=== PATIENT | female | born 1990 | race Caucasian/White ===

== ENCOUNTER → 2017-07-30 | Outpatient (CLI) | payer OTHER ==
[~2017-07-30] MED LIST: AUGMENTIN 875875 MG PO; CIPROFLOXACIN500 M1 PO; MINASTRIN 24 F1 EACH PO; PHENERGAN50 MG RC; PYRIDIUM200 MG PO; ZOFRAN4 MG PO; birth control
== END ==
LOC: M.LAB 11:49 → EDSTATUS 16:37
DX: N92.0 Excessive and frequent menstruation with regular cycle (principal)

== ENCOUNTER → 2017-08-13 | Outpatient (CLI) | payer OTHER | LOC: M.LAB 17:23 | DX: N92.0 Excessive and frequent menstruation with regular cycle (principal) ==

== ENCOUNTER 2019-07-29 08:54 | Emergency (ER) | payer OTHER ==
[~2019-07-29] VITALS: Ht 167.6 cm; Wt 56.2 kg
[2019-07-29] MEDS ORDERED: AMOXICILLI400 MG/5 M PO (09:09)
[2019-07-29 09:58] LABS: ABSOLUTE EOSINOPHILS 0.2 thou/uL (0.0-0.7); ABSOLUTE LYMPHOCYTES 1.5 thou/uL (0.8-5.3); ABSOLUTE MONOCYTES 0.7 thou/uL (0.0-1.2); ABSOLUTE NEUTROPHILS 4.3 thou/uL (1.6-8.1); BASOPHILS 0.4 %; EOSINOPHILS 2.7 %; HEMATOCRIT 37.6 % (37.0-47.0); HEMOGLOBIN 13.1 gm/dL (12.0-15.0); LYMPHOCYTES 22.9 %; MCH 31.5 pg (26.0-34.0); MCHC 34.8 g/dL (28.0-37.0); MCV 90.5 fL (80.0-100.0); MONOCYTES 9.9 %; NUCLEATED RBCS 0 /100WBC; PLATELET COUNT* 154 thou/uL (150-400); POLYS 64.1 %; RBC 4.15 mil/uL (4.20-5.00); RDW-CV 14.1 % (10.5-14.5); WBC 6.7 thou/uL (4.0-11.0)
[2019-07-29] MEDS ORDERED: MAGIC MOUTHWASH SWISH&SPIT (10:25)
[2019-07-29 10:36] VITALS: BP 120/86
== END 2019-07-29 10:37 | disposition home or self-care (01) ==
LOC: M.ERS 08:54
PROVIDERS: Family Medicine
DX: B27.90 Infectious mononucleosis, unspecified without complication (principal); Z88.1 Allergy status to other antibiotic agents; Z88.2 Allergy status to sulfonamides